=== PATIENT | female | born 1955 | race Caucasian/White ===

== ENCOUNTER 2017-11-12 23:40 | Emergency (ER) | payer MEDICARE ==
[~2017-11-12 23:40] MED LIST: ACET-2123 PO; ALPR1TAB2 PO; AUD IH; BUDE10.2 IH; CALC-866 PO; CARV3.1262 PO; LISI10TA7 PO; PANT40TA25 PO; ROSU5TAB PO; SERT100T12 PO; VITA1CAP85 PO
[2017-11-13] MEDS ORDERED: NITROGLYCERIN 1GM/1 INCH PACKET TD ONE (00:06)
[2017-11-13] MEDS ORDERED: HYDROCODONE/ACETAMINOPHEN 7.5/325 MG 15 ML UDCUP ONE (00:08)
[2017-11-13 00:10] LABS: BASOPHILS % (AUTO) 2.8 % (0.0-5.0); EOSINOPHILS % (AUTO) 1.2 % (0.0-8.0); HEMATOCRIT 31.2 % (36-48); LYMPHOCYTES % (AUTO) 22.8 % (21.0-51.0); MEAN CORPUSCULAR HEMOGLOBIN 23.5 pg (27.0-33.0); MEAN CORPUSCULAR HGB CONC 31.5 g/dL (32.0-36.0); MEAN CORPUSCULAR VOLUME 74.6 fL (79-99); MONOCYTES % (AUTO) 5.7 % (3.0-13.0); NEUTROPHILS % (AUTO) 67.5 % (40.0-77.0); PLATELET COUNT (AUTO) 372 K/uL (130-400); RED BLOOD CELL COUNT(AUTO) 4.19 MIL/uL (4.00-5.50); RED CELL DISTRIBUTION WIDTH 18.3 % (11.0-15.5); WHITE BLOOD COUNT (AUTO) 7.8 K/uL (4.8-10.8)
[2017-11-13 00:21] LABS: CREATININE 0.7 mg/dL (0.5-1.5); POTASSIUM 3.7 mmol/L (3.5-5.1)
[2017-11-13 00:34] LABS: ALBUMIN 3.4 g/dL (3.5-5.0); BILIRUBIN,TOTAL 0.3 mg/dL (0.2-1.0); TOTAL PROTEIN, SERUM 6.9 g/dL (6.0-8.3)
[2017-11-13] MEDS ORDERED: ISOVUE-370 50ML VIAL IV ONE (02:06)
[2017-11-13] MEDS ORDERED: IOPAMIDOL-370 100 ML VIAL IV ONE (02:06)
[2017-11-13] MEDS ORDERED: MORPHINE SULFATE 4 MG/1ML SYG ONE (02:10)
[2017-11-13 02:21] LABS: APPEARANCE,URINE SLIGHTLY CLOUDY (CLEAR); BILIRUBIN,URINE Negative (NEGATIVE); COLOR,URINE Yellow (YELLOW); GLUCOSE, URINE (UA) Negative (NEGATIVE); KETONES,URINE Negative (NEGATIVE); LEUKOCYTE ESTERASE ,URINE Moderate (NEGATIVE); NITRATE,URINE Negative (NEGATIVE); OCCULT BLOOD,URINE Negative (NEGATIVE); PROTEIN,URINE Negative (NEGATIVE)
[2017-11-13 02:29] LABS: AMPHET/METH SCREEN,URINE NEGATIVE (NEGATIVE); BACTERIA,URINE Rare /HPF (None Seen); BARBITURATE SCREEN, URINE NEGATIVE (NEGATIVE); BENZODIAZEPINES SCREEN,URINE POSITIVE (NEGATIVE); CANNABINOID SCREEN,URINE NEGATIVE (NEGATIVE); COCAINE SCREEN,URINE NEGATIVE (NEGATIVE); MUCUS,URINE Rare LPF (None Seen); OPIATE SCREEN,URINE POSITIVE (NEGATIVE); PHENCYCLIDINE SCREEN,URINE NEGATIVE (NEGATIVE); RBC,URINE 0-1 /HPF (0-1); SQUAMOUS EPITHELIAL CELL,UR Many /HPF (0-2)
== END 2017-11-13 06:08 | disposition home or self-care (01) ==
LOC: EDH 23:40
DX: R07.89 Other chest pain (principal); I10 Essential (primary) hypertension; I25.2 Old myocardial infarction; J44.9 Chronic obstructive pulmonary disease, unspecified; Z88.8 Allergy status to other drugs, medicaments and biological substances
CPT/HCPCS: 36415; 71045; 71275; 74177; 80053; 80305; 81001; 82550; 82553; 84484; 85025; 93005; 96374; 99285; J2270; Q9967 ×2

== ENCOUNTER 2017-12-02 12:40 | Observation (INO) | payer MEDICARE ==
[~2017-12-02] VITALS: Ht 160 cm; Wt 52.7 kg
[2017-12-02 13:51] LABS: BASOPHILS % (AUTO) 0.5 % (0.0-5.0); EOSINOPHILS % (AUTO) 0.1 % (0.0-8.0); LYMPHOCYTES % (AUTO) 11.6 % (21.0-51.0); MEAN CORPUSCULAR HEMOGLOBIN 21.9 pg (27.0-33.0); MEAN CORPUSCULAR HGB CONC 31.2 g/dL (32.0-36.0); MEAN CORPUSCULAR VOLUME 70.3 fL (79-99); MONOCYTES % (AUTO) 8.6 % (3.0-13.0); NEUTROPHILS % (AUTO) 79.2 % (40.0-77.0); NUCLEATED RED BLOOD CELLS 0.2 % (0.0-0.19); PLATELET COUNT (AUTO) 271 K/uL (130-400); RED BLOOD CELL COUNT(AUTO) 4.83 MIL/uL (4.00-5.50); RED CELL DISTRIBUTION WIDTH 20.3 % (11.0-15.5)
[2017-12-02 14:05] LABS: CREATININE 0.7 mg/dL (0.5-1.5); POTASSIUM 3.4 mmol/L (3.5-5.1)
[2017-12-02 14:07] LABS: INR 0.93 (0.85-1.15); PARTIAL THROMBOPLASTIN TIME 24.2 SEC (26.3-35.5); PROTHROMBIN TIME 9.8 SEC (9.6-11.6)
[2017-12-02] MEDS ORDERED: IPRATROPIUM/ALBUTEROL SULFATE 3 ML SOLUTION IH ONE ×2 (14:15→19:22)
[2017-12-02 14:18] LABS: ALBUMIN 3.4 g/dL (3.5-5.0); BILIRUBIN,TOTAL 0.4 mg/dL (0.2-1.0); CREATINE KINASE MB 1.2 ng/mL (0.5-3.6); TOTAL PROTEIN, SERUM 7.3 g/dL (6.0-8.3)
[2017-12-02] MEDS ORDERED: IOPAMIDOL-370 75 ML VIAL IV ONE (15:38)
[2017-12-02] MEDS ORDERED: METHYLPREDNISOLONE SOD SUCC 125MG/2ML VIAL ONE (16:44)
[2017-12-02] MEDS ORDERED: ASPIRIN 325 MG TABLET ONE (17:44)
[2017-12-02] MEDS ORDERED: AZITHROMYCIN 500MG+NS 250ML 250 ML IV ONE (18:49)
[2017-12-02 21:47] LABS: BILIRUBIN,URINE Negative (NEGATIVE); COLOR,URINE Yellow (YELLOW); GLUCOSE, URINE (UA) Negative (NEGATIVE); KETONES,URINE Trace mg/dL (NEGATIVE); LEUKOCYTE ESTERASE ,URINE Small (NEGATIVE); NITRATE,URINE Negative (NEGATIVE); OCCULT BLOOD,URINE Negative (NEGATIVE); PH,URINE 6.5 (5.0-8.0); PROTEIN,URINE Trace (NEGATIVE)
[2017-12-02 21:48] LABS: APPEARANCE,URINE SLIGHTLY CLOUDY (CLEAR)
[2017-12-02 21:54] LABS: AMPHET/METH SCREEN,URINE NEGATIVE (NEGATIVE); BARBITURATE SCREEN, URINE NEGATIVE (NEGATIVE); BENZODIAZEPINES SCREEN,URINE POSITIVE (NEGATIVE); CANNABINOID SCREEN,URINE NEGATIVE (NEGATIVE); COCAINE SCREEN,URINE NEGATIVE (NEGATIVE); OPIATE SCREEN,URINE POSITIVE (NEGATIVE); PHENCYCLIDINE SCREEN,URINE NEGATIVE (NEGATIVE); RBC,URINE 0-1 /HPF (0-1)
[2017-12-02 21:55] LABS: BACTERIA,URINE Rare /HPF (None Seen); SQUAMOUS EPITHELIAL CELL,UR Few /HPF (0-2)
[2017-12-02 22:09] LABS: CREATINE KINASE MB 0.8 ng/mL (0.5-3.6); TROPONIN I 0.35 ng/mL (0.00-0.06)
[2017-12-02] MEDS ORDERED: POTASSIUM CHLORIDE 20MEQ/100ML 100 ML IV PRN (23:45)
[2017-12-02] MEDS ORDERED: POTASSIUM CHLORIDE 20 MEQ ERTAB PO PRN (23:45)
[2017-12-02] MEDS ORDERED: POTASSIUM CHLORIDE 10% ELIXIR 20 MEQ/15 ML UDCUP PO PRN (23:45)
[2017-12-02] MEDS ORDERED: SODIUM CHLORIDE 0.9% 1000ML 1,000 ML IV SCH (23:45)
[2017-12-02] MEDS ORDERED: LIDOCAINE HCL-MPF 1% 2ML VIAL IVP PRN (23:45)
[2017-12-03 06:06] LABS: CREATINE KINASE MB 0.8 ng/mL (0.5-3.6); TROPONIN I 0.24 ng/mL (0.00-0.06)
[2017-12-03] MEDS: FAMOTIDINE 20MG TAB 20 MG TAB PO SCH ×2 (09:00→21:15)
[2017-12-03] MEDS ORDERED: ONDANSETRON HCL MDV 20ML 2 MG/ML VIAL ONE (09:39)
[2017-12-03] MEDS ORDERED: AZITHROMYCIN 500MG+NS 250ML 250 ML IV ONE (09:39)
[2017-12-03] MEDS ORDERED: METHYLPREDNISOLONE SOD SUCC 40MG/ML 1ML ONE (09:39)
[2017-12-03] MEDS ORDERED: MORPHINE SULFATE 4 MG/1ML SYG ONE ×2 (09:40→23:11)
[2017-12-03] MEDS ORDERED: POTASSIUM CHLORIDE 20MEQ/100ML 100 ML IV PRN (11:00)
[2017-12-03] MEDS ORDERED: MORPHINE SULFATE 2 MG/ML 1ML SYG IVP PRN (11:00)
[2017-12-03] MEDS ORDERED: ACETAMINOPHEN 325 MG TAB PO PRN ×2 (11:00)
[2017-12-03] MEDS ORDERED: ACETAMINOPHEN-CODEINE 300/30MG TAB PO PRN (11:00)
[2017-12-03] MEDS ORDERED: POTASSIUM CHLORIDE 20 MEQ ERTAB PO PRN (11:00)
[2017-12-03] MEDS ORDERED: POTASSIUM CHLORIDE 10% ELIXIR 20 MEQ/15 ML UDCUP PO PRN (11:00)
[2017-12-03] MEDS: METHYLPREDNISOLONE SOD SUCC 40MG/ML 1ML IVP SCH (11:00)
[2017-12-03] MEDS ORDERED: LIDOCAINE HCL-MPF 1% 2ML VIAL IVP PRN (11:00)
[2017-12-03] MEDS: AZITHROMYCIN 500MG+NS 250ML 250 ML IV SCH (11:00)
[2017-12-03] MEDS ORDERED: ALBUTEROL SULFATE 0.083% 2.5 MG/3 ML INH IH ONE (11:37)
[2017-12-03] MEDS: ALBUTEROL SULFATE 0.083% 2.5 MG/3 ML INH IH SCH ×3 (12:18→23:44)
[2017-12-03 12:50] VITALS: BP 148/66
[2017-12-03 16:46] VITALS: BP 144/71
[2017-12-03] MEDS: BUDESONIDE 0.5 MG/2 ML INH IH SCH (19:07)
[2017-12-03 20:26] VITALS: BP 146/64
[2017-12-03] MEDS ORDERED: ATORVASTATIN CALCIUM 10 MG TABLET PO SCH (21:00)
[2017-12-03] MEDS: CARVEDILOL 3.125 MG TABLET PO SCH (21:16)
[2017-12-03 23:58] VITALS: BP 174/80
[2017-12-04 03:38] VITALS: BP 129/49
[2017-12-04] MEDS: METHYLPREDNISOLONE SOD SUCC 40MG/ML 1ML IVP SCH ×2 (04:35→13:00)
[2017-12-04 04:49] LABS: HEMATOCRIT 29.1 % (36-48); MEAN CORPUSCULAR HEMOGLOBIN 21.6 pg (27.0-33.0); MEAN CORPUSCULAR HGB CONC 30.3 g/dL (32.0-36.0); MEAN CORPUSCULAR VOLUME 71.1 fL (79-99); NUCLEATED RED BLOOD CELLS 0.7 % (0.0-0.19); PLATELET COUNT (AUTO) 232 K/uL (130-400); RED BLOOD CELL COUNT(AUTO) 4.09 MIL/uL (4.00-5.50); RED CELL DISTRIBUTION WIDTH 19.9 % (11.0-15.5); WHITE BLOOD COUNT (AUTO) 4.4 K/uL (4.8-10.8)
[2017-12-04 05:31] LABS: CREATINE KINASE MB 0.6 ng/mL (0.5-3.6); CREATININE 0.5 mg/dL (0.5-1.5); POTASSIUM 4.5 mmol/L (3.5-5.1); TROPONIN I 0.19 ng/mL (0.00-0.06)
[2017-12-04] MEDS: ALBUTEROL SULFATE 0.083% 2.5 MG/3 ML INH IH SCH ×2 (07:00→11:59)
[2017-12-04] MEDS: BUDESONIDE 0.5 MG/2 ML INH IH SCH (07:07)
[2017-12-04] MEDS ORDERED: ENOXAPARIN SODIUM 40 MG/0.4 ML SYRINGE SQ SCH (09:00)
[2017-12-04 09:17] VITALS: BP 157/75
[2017-12-04] MEDS: FAMOTIDINE 20MG TAB 20 MG TAB PO SCH (09:29)
[2017-12-04] MEDS: CARVEDILOL 3.125 MG TABLET PO SCH (09:30)
[2017-12-04] MEDS ORDERED: PRED20TA3 PO (10:50)
[2017-12-04] MEDS ORDERED: AZIT500T4 PO (10:50)
[2017-12-04 12:23] VITALS: BP 184/81
[2017-12-04] MEDS: AZITHROMYCIN 500MG+NS 250ML 250 ML IV SCH (12:59)
[2017-12-04 17:34] VITALS: BP 125/65
== END 2017-12-04 17:45 | disposition home or self-care (01) ==
LOC: EDH 12:40 → EDHIP 17:16 → 3DH 12-03 12:47
PROVIDERS: ADMIT Family Medicine; ATTEND Family Medicine
DX: J44.1 Chronic obstructive pulmonary disease with (acute) exacerbation (principal); I10 Essential (primary) hypertension; I25.10 Atherosclerotic heart disease of native coronary artery without angina pectoris; E78.5 Hyperlipidemia, unspecified; I25.2 Old myocardial infarction; F17.210 Nicotine dependence, cigarettes, uncomplicated; W19.XXXA Unspecified fall, initial encounter; Y93.89 Activity, other specified; Y92.89 Other specified places as the place of occurrence of the external cause; Y99.8 Other external cause status; Z95.5 Presence of coronary angioplasty implant and graft; Z99.81 Dependence on supplemental oxygen; Z82.49 Family history of ischemic heart disease and other diseases of the circulatory system
CPT/HCPCS: 36415 ×3; 71046; 71275; 72100; 80048; 80053; 80305; 81001; 82550 ×4; 82553 ×4; 83605; 83874 ×3; 84484 ×4; 85025; 85027; 85378; 85610; 85730; 87040; 93005 ×4; 93306; 94640 ×9; 94664; 96365; 96372; 96375; 96376; 99291; G0378 ×48; J0456 ×3; J1650; J2270 ×2; J2920 ×3; J2930; Q9967

== ENCOUNTER 2017-12-15 07:08 | Day surgery (SDC) | payer MEDICARE ==
[~2017-12-15] VITALS: Ht 162.6 cm; Wt 50.3 kg
[~2017-12-15 07:08] MED LIST changes: +AZIT500T4 PO; +PRED20TA3 PO; +SODIUM CHLORIDE 0.9% 1000ML 1,000 ML IV ONE
[2017-12-15 07:41] VITALS: BP 185/87
[2017-12-15] MEDS ORDERED: PROPOFOL 10 MG/ML 20ML VIAL IV ONE (08:44)
[2017-12-15 09:03] VITALS: BP 111/52
== END 2017-12-15 09:35 | disposition home or self-care (01) ==
LOC: ENDO 07:08 → DAH 07:08 → ENDO 09:05
PROVIDERS: ATTEND Internal Medicine Gastroenterology
DX: Z12.11 Encounter for screening for malignant neoplasm of colon (principal); D12.3 Benign neoplasm of transverse colon; Z88.8 Allergy status to other drugs, medicaments and biological substances; Z87.891 Personal history of nicotine dependence; Z79.899 Other long term (current) drug therapy; K27.9 Peptic ulcer, site unspecified, unspecified as acute or chronic, without hemorrhage or perforation; I10 Essential (primary) hypertension; E78.00 Pure hypercholesterolemia, unspecified; I25.10 Atherosclerotic heart disease of native coronary artery without angina pectoris; Z95.5 Presence of coronary angioplasty implant and graft; J44.9 Chronic obstructive pulmonary disease, unspecified; F32.9 Major depressive disorder, single episode, unspecified; D50.9 Iron deficiency anemia, unspecified
CPT/HCPCS: 45380; 88305; 93005; A4606; J2704; J7030

== ENCOUNTER 2018-10-13 05:57 | Inpatient (IN) | payer MEDICARE ==
[~2018-10-13] VITALS: Ht 160 cm; Wt 36.7 kg
[~2018-10-13 05:57] MED LIST changes: -ACET-2123 PO; -AZIT500T4 PO; -PRED20TA3 PO; -ROSU5TAB PO; -SODIUM CHLORIDE 0.9% 1000ML 1,000 ML IV ONE
[2018-10-13] MEDS ORDERED: MORPHINE SULFATE 2 MG/ML 1ML SYG ONE ×5 (06:14→14:05)
[2018-10-13 07:18] LABS: CREATININE 0.5 mg/dL (0.5-1.5); POTASSIUM 3.9 mmol/L (3.5-5.1)
[2018-10-13 07:24] LABS: ALBUMIN 3.3 g/dL (3.5-5.0); BILIRUBIN,TOTAL 0.3 mg/dL (0.2-1.0); TOTAL PROTEIN, SERUM 6.4 g/dL (6.0-8.3)
[2018-10-13 07:25] LABS: BILIRUBIN,URINE Negative (NEGATIVE); COLOR,URINE Yellow (YELLOW); GLUCOSE, URINE (UA) Negative (NEGATIVE); KETONES,URINE Negative (NEGATIVE); LEUKOCYTE ESTERASE ,URINE Negative (NEGATIVE); NITRATE,URINE Negative (NEGATIVE); OCCULT BLOOD,URINE Negative (NEGATIVE); PH,URINE 8.5 (5.0-8.0); PROTEIN,URINE Negative (NEGATIVE)
[2018-10-13 07:31] LABS: INR 0.95 (0.85-1.15); PARTIAL THROMBOPLASTIN TIME 27.1 SEC (26.3-35.5)
[2018-10-13] MEDS: SODIUM CHLORIDE 0.9% 1000ML 1,000 ML IV SCH ×2 (07:40→19:50)
[2018-10-13 07:45] LABS: APPEARANCE,URINE CLEAR (CLEAR)
[2018-10-13] MEDS ORDERED: ONDANSETRON HCL 4 MG/2 ML VIAL IV PRN (07:45)
[2018-10-13 07:48] LABS: HEMATOCRIT 30.7 % (36-48); MEAN CORPUSCULAR HEMOGLOBIN 18.3 pg (27.0-33.0); MEAN CORPUSCULAR HGB CONC 28.5 g/dL (32.0-36.0); NUCLEATED RED BLOOD CELLS 0.2 % (0.0-0.19); PLATELET COUNT (AUTO) 249 K/uL (130-400); RED BLOOD CELL COUNT(AUTO) 4.79 MIL/uL (4.00-5.50); WHITE BLOOD COUNT (AUTO) 6.1 K/uL (4.8-10.8)
[2018-10-13 08:33] LABS: EOSINOPHILS % (MANUAL) 1 % (1-6); LYMPHOCYTES % (MANUAL) 22 % (22-44); MAN.DIFF COMMENT-IMPRESSION MANUAL DIFFERENTIAL; MONOCYTES % (MANUAL) 6 % (2-9); PLATELET MORPHOLOGY COMMENT ADEQUATE; SEGMENTED NEUTROPHILS % 71 % (40-70)
[2018-10-13] MEDS ORDERED: SODIUM CHLORIDE 0.9% 1000ML 1,000 ML IV ONE (08:48)
[2018-10-13] MEDS ORDERED: FAMOTIDINE/PF 20 MG/2 ML VIAL IV ONE (08:48)
[2018-10-13] MEDS ORDERED: ENOXAPARIN SODIUM 30 MG/0.3 ML SQ ONE (08:48)
[2018-10-13] MEDS: ENOXAPARIN SODIUM 30 MG/0.3 ML SQ SCH (09:00)
[2018-10-13] MEDS: FAMOTIDINE/PF 20 MG/2 ML VIAL IV SCH ×2 (09:00→19:45)
[2018-10-13 14:51] VITALS: BP 187/70
--- NOTE | 2018-10-13 16:30 | NUR ---
MD ROUNDS PATIENT AWAKE AND ALERT. VOICES ALL NEEDS. MEDICATED PER MARS FOR COMPLAINTS OF PAIN. VISITED WITH PATIENT. POC DISCUSSED. ALL QUESTIONS ANSWERED BY MD. CALLED SON AND DISCUSSED POC AND POSSIBLE SURGERY TOMORROW. SON KRISTI FLOWER, AGREED WITH SURGERY TELEPHONE CONSENT OBTAINED. RICH ACEVEDO RN WITNESSED. NO QUESTIONS OR CONCERNS VOICED AT THIS TIME. CALL LIGHT WITHIN REACH WILL CONTINUE TO BE OBSERVED. Addendum: 10/13/18 at 1924 by VIVIANA SUAREZ RN RN Amended: Links added.
[2018-10-13] MEDS ORDERED: MEGE400O4 PO (18:18)
[2018-10-13] MEDS ORDERED: ASPI-1197 PO (18:18)
[2018-10-13] MEDS ORDERED: MAGN400O17 PO (18:18)
[2018-10-13] MEDS ORDERED: DOCU-116 PO (18:18)
[2018-10-13] MEDS ORDERED: ONDA4TAB4 PO (18:21)
[2018-10-13] MEDS ORDERED: ONDANSETRON 4 MG TABLET PO PRN (18:30)
[2018-10-13] MEDS ORDERED: MAGNESIUM HYDROXIDE 30 ML/UDCUP PO PRN (18:30)
[2018-10-13] MEDS ORDERED: ALPRAZOLAM 1 MG TAB ONE (18:41)
[2018-10-13] MEDS: MORPHINE SULFATE 2 MG/ML 1ML SYG IV PRN (18:51)
[2018-10-13 19:30] VITALS: BP 166/72
[2018-10-13] MEDS: DOCUSATE SODIUM 100 MG CAP PO SCH (19:45)
[2018-10-13] MEDS: CARVEDILOL 3.125 MG TABLET PO SCH (19:45)
[2018-10-13] MEDS: ALPRAZOLAM 1 MG TAB PO SCH (21:00)
[2018-10-13 23:12] VITALS: BP 149/79
[2018-10-14] VITALS (8 sets, daily range): BP systolic 136–159; BP diastolic 60–75
[2018-10-14 04:18] LABS: BASOPHILS % (AUTO) 0.4 % (0.0-5.0); EOSINOPHILS % (AUTO) 0.1 % (0.0-8.0); LYMPHOCYTES % (AUTO) 29.8 % (21.0-51.0); MEAN CORPUSCULAR HEMOGLOBIN 18.6 pg (27.0-33.0); MEAN CORPUSCULAR HGB CONC 27.8 g/dL (32.0-36.0); MEAN CORPUSCULAR VOLUME 66.7 fL (79-99); MONOCYTES % (AUTO) 4.9 % (3.0-13.0); NEUTROPHILS % (AUTO) 64.8 % (40.0-77.0); PLATELET COUNT (AUTO) 235 K/uL (130-400); RED BLOOD CELL COUNT(AUTO) 4.79 MIL/uL (4.00-5.50); WHITE BLOOD COUNT (AUTO) 8.8 K/uL (4.8-10.8)
[2018-10-14 04:33] LABS: CREATININE 0.6 mg/dL (0.5-1.5)
[2018-10-14] MEDS ORDERED: CLINDAMYCIN 600 MG/D5% WATER 50 ML IV PRN (06:00)
[2018-10-14] MEDS: MORPHINE SULFATE 2 MG/ML 1ML SYG IV PRN (08:57)
[2018-10-14] MEDS: CARVEDILOL 3.125 MG TABLET PO SCH ×2 (08:58→21:19)
[2018-10-14] MEDS: ALPRAZOLAM 1 MG TAB PO SCH ×3 (08:58→21:19)
[2018-10-14] MEDS: VITAMIN B COMPLEX 1 CAPSULE PO SCH (09:00)
[2018-10-14] MEDS: SERTRALINE HCL 50 MG TABLET PO SCH (09:00)
[2018-10-14] MEDS: MEGESTROL 400 MG/10 ML UDCUP PO SCH (09:00)
[2018-10-14] MEDS: LISINOPRIL 10 MG TABLET PO SCH (09:00)
[2018-10-14] MEDS: DOCUSATE SODIUM 100 MG CAP PO SCH ×2 (09:00→21:19)
[2018-10-14] MEDS: PANTOPRAZOLE SODIUM 40 MG TABLET.DR PO SCH (09:00)
[2018-10-14] MEDS: ENOXAPARIN SODIUM 30 MG/0.3 ML SQ SCH (09:00)
[2018-10-14] MEDS: SYMBICORT 160-4.5 MCG INHALER IH SCH (09:00)
--- NOTE | 2018-10-14 09:30 | NUR ---
ROUNDS-CARDIOLOGY VISITED WITH PATIENT. POC DISCUSSED. CLEARANCE GIVEN TO PROCEED WITH ORIF. AWARE. WILL CONTINUE TO BE OBSERVED. CALL LIGHT WITHIN REACH. SIDE RAILS UP X3. BED AT THE LOWEST POSITION. Addendum: 10/14/18 at 1242 by VIVIANA SUAREZ RN RN Amended: Links added.
--- NOTE | 2018-10-14 12:12 | NUR ---
[facility] CM met with pt currently on and off confusion, unable to answer questions appropriately. Called son on facesheet, spoke Mason Linares discussed dc plans. Prior to admission pt was recently discharged to [facility] for rehab readmitted s/p fall w/ left hip fx. Prior to [facility] pt lives at home with son and son-in-law. Has a shower chair, rollator walker, and nebulizer machine. Son agreeable for short term placement rehab, as per son most likely to [facility], would like to decide once pt more stable and after surgery. DC plan to SNF. CM to cont to follow up. Addendum: 10/14/18 at 1215 by CATHY LOVE LVN Amended: Links added.
--- NOTE | 2018-10-14 14:00 | NUR ---
CALLED TO INFORM DIANETICIST THAT SURGERY WILL NOT BE DONE TODAY. PATIENT AND SON KRISTI, AT BEDSIDE AWARE. PATIENT PLEASANTLY CONFUSED PULLED OUT HARDEN CATHETER. AWARE. NEW ORDERS RECEIVED AND CARRIED OUT. PATIENT PLACED ON A 1:1 SITTER AND ATIVAN 1MG GIVEN IVP SLOWLY. NO SIGNS OF DISTRESS NOTED AT THIS TIME. VITALS STABLE. AFEBRILE. TOLERATING IVF WELL. DIET ORDERED. CALL LIGHT WITHIN REACH. WILL CONTINUE TO BE OBSERVED. Addendum: 10/14/18 at 1455 by VIVIANA SUAREZ RN RN Amended: Links added.
[2018-10-14] MEDS ORDERED: LORAZEPAM 2 MG/ML 1 ML VIAL ONE (14:38)
[2018-10-14] MEDS: FAMOTIDINE/PF 20 MG/2 ML VIAL IV SCH ×2 (14:52→21:18)
[2018-10-14] MEDS ORDERED: LORAZEPAM 2 MG/ML 1 ML VIAL IVP ONE (15:40)
--- NOTE | 2018-10-14 15:47 | NUR ---
[facility] consult Patient assessed as ordered. [facility] recommendations submitted. Addendum: 10/14/18 at 1550 by BOUBACAR GODOY RN/ Amended: Links added.
--- NOTE | 2018-10-14 17:00 | NUR ---
PATIENT TRANSFERRED TO ROOM 306. ENDORSED PATIENT AND REPORT GIVEN TO MAGO YOUNG. Addendum: 10/14/18 at 1732 by VIVIANA SUAREZ RN RN Amended: Links added.
[2018-10-14] MEDS: SODIUM CHLORIDE 0.9% 1000ML 1,000 ML IV SCH (21:26)
[2018-10-15] MEDS: MORPHINE SULFATE 2 MG/ML 1ML SYG IV PRN ×4 (02:48→20:50)
[2018-10-15 05:40] LABS: BASOPHILS % (AUTO) 0.3 % (0.0-5.0); EOSINOPHILS % (AUTO) 0.4 % (0.0-8.0); HEMATOCRIT 29.9 % (36-48); MEAN CORPUSCULAR HEMOGLOBIN 19.5 pg (27.0-33.0); MEAN CORPUSCULAR HGB CONC 29.2 g/dL (32.0-36.0); MEAN CORPUSCULAR VOLUME 66.8 fL (79-99); MONOCYTES % (AUTO) 6.4 % (3.0-13.0); NEUTROPHILS % (AUTO) 47.9 % (40.0-77.0); PLATELET COUNT (AUTO) 256 K/uL (130-400); RED BLOOD CELL COUNT(AUTO) 4.47 MIL/uL (4.00-5.50); RED CELL DISTRIBUTION WIDTH 33.1 % (11.0-15.5); WHITE BLOOD COUNT (AUTO) 7.2 K/uL (4.8-10.8)
[2018-10-15 05:57] LABS: ALBUMIN 2.6 g/dL (3.5-5.0); BILIRUBIN,TOTAL 0.6 mg/dL (0.2-1.0); CREATININE 0.4 mg/dL (0.5-1.5); POTASSIUM 3.8 mmol/L (3.5-5.1); TOTAL PROTEIN, SERUM 5.9 g/dL (6.0-8.3)
[2018-10-15 06:09] VITALS: BP 155/70
--- NOTE | 2018-10-15 06:57 | NUR ---
PATIENT UPDATE PT KEEPING NPO POST MN, GOING FOR LEFT HIP SURGERY TODAY BY DR. HUNT. MEDICATED ONCE FOR PAIN WITH MORPHINE SULFATE 2 MG SLOW IV PUSH WHICH AFFORDED RELIEF. CONTINUES WITH THE HYDRATION WITH NS AT 75 CC/HR. REPOSITIONED IN THE BED, FULL BEDBATH GIVEN, WAFFLE MATTRESS APPLIED. COMFORTABLE WITH THE O2 ON AT 2L PER NASAL CANNULA. VITAL SIGNS STABLE.
[2018-10-15 07:43] VITALS: BP 157/63
--- NOTE | 2018-10-15 08:00 | NUR ---
AM SHIFT ASSESSMENT: NPO , SURGERY FOR LT. HIP FX PENDING THIS AFTERNOON.
[2018-10-15] MEDS: VITAMIN B COMPLEX 1 CAPSULE PO SCH (09:00)
[2018-10-15] MEDS: CARVEDILOL 3.125 MG TABLET PO SCH ×2 (09:00→20:49)
[2018-10-15] MEDS: ENOXAPARIN SODIUM 30 MG/0.3 ML SQ SCH (09:00)
[2018-10-15] MEDS: ALPRAZOLAM 1 MG TAB PO SCH ×3 (09:00→21:00)
[2018-10-15] MEDS: PANTOPRAZOLE SODIUM 40 MG TABLET.DR PO SCH (09:00)
[2018-10-15] MEDS: DOCUSATE SODIUM 100 MG CAP PO SCH ×2 (09:00→20:49)
[2018-10-15] MEDS: SYMBICORT 160-4.5 MCG INHALER IH SCH (09:00)
[2018-10-15] MEDS: MEGESTROL 400 MG/10 ML UDCUP PO SCH (09:00)
[2018-10-15] MEDS: SERTRALINE HCL 50 MG TABLET PO SCH (09:00)
--- NOTE | 2018-10-15 09:01 | NUR ---
C/O PAIN TO LT. HIP, 7 TO 8 ON PS OF 1-10. MEDICATED WITH MORPHINE 2 MG IV
[2018-10-15 11:39] VITALS: BP 161/68
--- NOTE | 2018-10-15 11:58 | NUR ---
RDSCREEN - LOW BMI Patient NPO for surgery at time of visit. Patient with low BMI (14.3). When medically feasible, Rec to resume diet of Heart Healthy Diet, Ensure supplement BID, and to add 30mL ProMod TID secondary to malnutrition and wound. Rec to add Vitamin C and Zinc for wound healing support. Patient LBM 10/11/18. Patient monitored labs: Cr 0.4, Alb 2.6, H/H 8.7/29.9. RD to continue to monitor. Please notify RD as nutritional concerns arise. Thank you. Addendum: 10/15/18 at [address] RD Amended: Links added.
[2018-10-15] MEDS: SODIUM CHLORIDE 0.9% 1000ML 1,000 ML IV SCH (13:00)
--- NOTE | 2018-10-15 15:00 | NUR ---
SURGERY NOW HAS BEEN BUMPED UP AGAIN, DR. GONZALEZ WILL BE HERE ABOUT 1630 AND FAMILY HAS BEEN INFORMED, NOT HAPPY, HAD TO LEAVE.
[2018-10-15 16:09] VITALS: BP 112/63
--- NOTE | 2018-10-15 17:45 | NUR ---
DR. GONZALEZ HERE NOW. TALKED TO SON ( WHITLEY). PLAN TO TAKE HER TO OR THIS EVENING.
[2018-10-15 19:21] VITALS: BP 177/78
--- NOTE | 2018-10-15 19:25 | NUR ---
DR. HUNT CALLED AND RESCHEDULED SURG. FOR 0730 AM. ASKED THAT I CALL SON AND INFORM HIM.
--- NOTE | 2018-10-15 19:57 | NUR ---
INFORMED SON THAT SURG HAS BEEN RESCHEDULED FOR TOMORROW MORNING. WILL GIVE PT. CLEAR LIQUIDS TONIGHT AND PLACE ON NPO STATUS AT [facility] AGAIN.
[2018-10-15] MEDS: LISINOPRIL 10 MG TABLET PO SCH (20:48)
[2018-10-15] MEDS: FAMOTIDINE/PF 20 MG/2 ML VIAL IV SCH ×2 (20:48→21:00)
[2018-10-15 23:07] VITALS: BP 144/73
[2018-10-16] VITALS (21 sets, daily range): BP systolic 123–187; BP diastolic 48–85
[2018-10-16] MEDS: SODIUM CHLORIDE 0.9% 1000ML 1,000 ML IV SCH ×4 (02:20→16:12)
[2018-10-16 04:49] LABS: BASOPHILS % (AUTO) 0.8 % (0.0-5.0); EOSINOPHILS % (AUTO) 1.2 % (0.0-8.0); HEMATOCRIT 30.6 % (36-48); LYMPHOCYTES % (AUTO) 53.9 % (21.0-51.0); MEAN CORPUSCULAR HEMOGLOBIN 19.7 pg (27.0-33.0); MEAN CORPUSCULAR VOLUME 67.8 fL (79-99); MONOCYTES % (AUTO) 7.5 % (3.0-13.0); NEUTROPHILS % (AUTO) 36.6 % (40.0-77.0); NUCLEATED RED BLOOD CELLS 0.1 % (0.0-0.19); PLATELET COUNT (AUTO) 270 K/uL (130-400); RED BLOOD CELL COUNT(AUTO) 4.51 MIL/uL (4.00-5.50); RED CELL DISTRIBUTION WIDTH 34.5 % (11.0-15.5); WHITE BLOOD COUNT (AUTO) 5.1 K/uL (4.8-10.8)
[2018-10-16] MEDS: MORPHINE SULFATE 2 MG/ML 1ML SYG IV PRN ×4 (04:58→20:44)
[2018-10-16 05:02] LABS: CREATININE 0.4 mg/dL (0.5-1.5); POTASSIUM 3.3 mmol/L (3.5-5.1)
--- NOTE | 2018-10-16 07:00 | NUR ---
TO OR NOW, SON (KRISTI) NOTIFIED VIA PHONE BY ME (BE). WILL GIVE HIM A CALL BACK WHEN PT. RETURNS TO ROOM.
[2018-10-16] MEDS ORDERED: PROPOFOL 10 MG/ML 20ML VIAL IV ONE (07:05)
[2018-10-16] MEDS ORDERED: FENTANYL CITRATE PF 50 MCG/1 ML 2ML VIAL ONE (07:05)
[2018-10-16] MEDS ORDERED: LIDOCAINE PF 2% 5ML ABBOJECT ONE (07:05)
[2018-10-16] MEDS ORDERED: ROCURONIUM 10MG/1ML SYR 10 MG/ML ML ONE (07:05)
[2018-10-16] MEDS ORDERED: SUCCINYLCHOLINE 200MG/10ML SYR ONE (07:05)
[2018-10-16] MEDS ORDERED: ROPIVACAINE 0.5% 5MG/ML 30ML IJ ONE (07:12)
[2018-10-16] MEDS: MEGESTROL 400 MG/10 ML UDCUP PO SCH (09:00)
[2018-10-16] MEDS: LISINOPRIL 10 MG TABLET PO SCH (09:00)
[2018-10-16] MEDS: SYMBICORT 160-4.5 MCG INHALER IH SCH (09:00)
[2018-10-16] MEDS: ALPRAZOLAM 1 MG TAB PO SCH ×3 (09:00→20:37)
[2018-10-16] MEDS: DOCUSATE SODIUM 100 MG CAP PO SCH ×2 (09:00→20:37)
[2018-10-16] MEDS: FAMOTIDINE/PF 20 MG/2 ML VIAL IV SCH ×2 (09:00→20:37)
[2018-10-16] MEDS: CARVEDILOL 3.125 MG TABLET PO SCH ×2 (09:00→20:38)
[2018-10-16] MEDS: SERTRALINE HCL 50 MG TABLET PO SCH (09:00)
[2018-10-16] MEDS: PANTOPRAZOLE SODIUM 40 MG TABLET.DR PO SCH (09:00)
[2018-10-16] MEDS: VITAMIN B COMPLEX 1 CAPSULE PO SCH (09:00)
[2018-10-16] MEDS: ENOXAPARIN SODIUM 30 MG/0.3 ML SQ SCH (09:00)
[2018-10-16] MEDS ORDERED: SUB TO ALBUTEROL 2.5MG/3ML NEBULES PER P&T IH ONE (09:07)
[2018-10-16] MEDS: ALBUTEROL SULFATE 0.083% 2.5 MG/3 ML INH IH PRN (09:35)
[2018-10-16] MEDS ORDERED: MEPERIDINE-PF 25 MG/ML SYG ONE (09:49)
[2018-10-16] MEDS ORDERED: HYDRALAZINE HCL 20 MG/ML VIAL ONE ×2 (09:49→09:54)
[2018-10-16] MEDS ORDERED: KETOROLAC TROMETHAMINE 30MG/ML ONE (09:58)
[2018-10-16] MEDS ORDERED: LIDOCAINE HCL 1% 20 ML VIAL ONE (10:33)
[2018-10-16] MEDS ORDERED: BUPIVACAINE/PF 0.25% 30ML VIAL IJ ONE (10:33)
[2018-10-16] MEDS ORDERED: SODIUM CHLORIDE 0.9% 10 ML VIAL ONE (10:34)
[2018-10-16] MEDS ORDERED: LIDOCAINE HCL-MPF 0.5% 50ML VIAL IJ ONE (10:45)
[2018-10-16] MEDS ORDERED: BUPIVACAINE/PF 0.5% 10ML VIAL ONE (10:48)
--- NOTE | 2018-10-16 10:52 | NUR ---
INDIA ECKERT TO PERFORM LEFT HIP NERVE BLOCK. RT PT, RT SITE IDENTIFIED. PROCEDURE EXPLAINED TO PT. Addendum: 10/16/18 at 1053 by SANJAY WHEAT RN RN Amended: Links added.
--- NOTE | 2018-10-16 12:00 | NUR ---
ARRIVAL TO FLOOR ROOM 230. PT IS AWAKE AND ALERT, GROGGY BUT AROUSABLE TO NAME AND ANSWERS QUESTIONS APPROPRIATELY. LEFT HIP DRESSING IS CLEAN DRY AND INTACT, ICE PACK APPLIED PER DR HUNT ORDERS. BREATHING PATTERN IS EVEN AND UNLABORED. DENIES CP DENIES SOB DENIES NV. NOTED MANY MEDICATIONS IN EMAR IN RED SINCE 319 SHIFTS. ATTEMPTED TO CLEAR OUT PAST DUE AND OLD MEDS FROM EMAR. PT IS RESTING IN BED, DOOR AJAR BLINDS OPEN CALL LIGHT WITHIN REACH.
--- NOTE | 2018-10-16 13:00 | NUR ---
ATTEMPTING TO REMOVE LINES IV , O2 AND TELE PACK. REORIENTED TO PLACE AND TIME. CRESCENCIO MERCEDES AT BEDSIDE.
[2018-10-16] MEDS: CLINDAMYCIN 600 MG/D5% WATER 50 ML IV SCH ×2 (13:17→23:03)
--- NOTE | 2018-10-16 18:23 | NUR ---
STATUS RESTING IN BED, NO COMPLAINTS AT THIS TIME 1:1 SITTER AT BEDSIDE.
--- NOTE | 2018-10-16 21:00 | NUR ---
PT CONTINUES AT 1:1. NO DISTRESS NOTED. PAIN STATED TO LEFT HIP. MORPHINE PRN AVAILABLE. NO SOB NOTED. PT IS STABLE. NOT ATTEMPTING TO PULL AT IVS OR GETTING OUT OF BED. LAST BM 10/13. PT HAS BEEN BEDREST.
[2018-10-17 03:09] VITALS: BP 160/74
[2018-10-17 03:34] LABS: BASOPHILS % (AUTO) 0.1 % (0.0-5.0); EOSINOPHILS % (AUTO) 1.1 % (0.0-8.0); HEMATOCRIT 28.1 % (36-48); MEAN CORPUSCULAR HEMOGLOBIN 19.8 pg (27.0-33.0); MEAN CORPUSCULAR VOLUME 68.4 fL (79-99); MONOCYTES % (AUTO) 7.9 % (3.0-13.0); NEUTROPHILS % (AUTO) 31.9 % (40.0-77.0); PLATELET COUNT (AUTO) 291 K/uL (130-400); RED BLOOD CELL COUNT(AUTO) 4.12 MIL/uL (4.00-5.50); RED CELL DISTRIBUTION WIDTH 35.7 % (11.0-15.5); WHITE BLOOD COUNT (AUTO) 4.6 K/uL (4.8-10.8)
[2018-10-17] MEDS: MORPHINE SULFATE 2 MG/ML 1ML SYG IV PRN ×3 (03:44→23:46)
[2018-10-17 04:43] LABS: CREATININE 0.3 mg/dL (0.5-1.5)
[2018-10-17] MEDS: SODIUM CHLORIDE 0.9% 1000ML 1,000 ML IV SCH (05:00)
[2018-10-17 05:09] LABS: POTASSIUM 2.7 mmol/L (3.5-5.1)
[2018-10-17] MEDS ORDERED: LIDOCAINE HCL-MPF 1% 2ML VIAL IVP PRN (05:15)
[2018-10-17] MEDS ORDERED: POTASSIUM CHLORIDE 20 MEQ ERTAB PO PRN (05:15)
[2018-10-17] MEDS ORDERED: POTASSIUM CHLORIDE 10% ELIXIR 20 MEQ/15 ML UDCUP PO PRN (05:15)
--- NOTE | 2018-10-17 05:18 | NUR ---
POTASSIUM AT 2.7. CALLED BLANCO RODRIGUEZ. NEW ORDER FOR POTASSIUM PROTOCOL
[2018-10-17] MEDS: POTASSIUM CHLORIDE 20MEQ/100ML 100 ML IV PRN ×2 (05:37→07:21)
[2018-10-17] MEDS: SYMBICORT 160-4.5 MCG INHALER IH SCH (07:15)
[2018-10-17] MEDS: DOCUSATE SODIUM 100 MG CAP PO SCH ×2 (07:21→21:22)
[2018-10-17] MEDS: ASPIRIN 81MG TAB.CHEW PO SCH (07:21)
[2018-10-17] MEDS: MEGESTROL 400 MG/10 ML UDCUP PO SCH (07:21)
[2018-10-17] MEDS: PANTOPRAZOLE SODIUM 40 MG TABLET.DR PO SCH (07:21)
[2018-10-17] MEDS: VITAMIN B COMPLEX 1 CAPSULE PO SCH (07:21)
[2018-10-17] MEDS: ALPRAZOLAM 1 MG TAB PO SCH ×3 (07:21→21:22)
[2018-10-17] MEDS: CARVEDILOL 3.125 MG TABLET PO SCH ×2 (07:21→21:23)
[2018-10-17] MEDS: LISINOPRIL 10 MG TABLET PO SCH (07:21)
[2018-10-17] MEDS: ENOXAPARIN SODIUM 30 MG/0.3 ML SQ SCH (07:22)
[2018-10-17] MEDS: FAMOTIDINE/PF 20 MG/2 ML VIAL IV SCH ×2 (07:23→21:23)
[2018-10-17] MEDS: SERTRALINE HCL 50 MG TABLET PO SCH (07:23)
[2018-10-17 07:56] VITALS: BP 169/72
--- NOTE | 2018-10-17 08:00 | NUR ---
ASSESSMENT PT IS AAOX2, DENIES CP DENIES SOB DENIES NV NO COMPLAINTS. SITTING UPRIGHT IN BED, LEFT HIP DRESSING INTACT AND INPLACE. 1:1 SITTER LEONARDO. POTASSIUM REPLACEMENT IN PROGRESS. CALL LIGHT WITHIN REACH.
[2018-10-17] MEDS ORDERED: MAGNESIUM 4GM PREMIX 100ML 100 ML IV ONE (10:45)
[2018-10-17] MEDS ORDERED: POTASSIUM CHLORIDE 20 MEQ ERTAB PO SCH (10:45)
--- NOTE | 2018-10-17 10:45 | NUR ---
DR HUNT / DR LANDON ROUNDED SAW PATIENT ORDERS RECEIVED
[2018-10-17 12:00] VITALS: BP 134/57
--- NOTE | 2018-10-17 13:00 | NUR ---
cm note metwith patient and with son, and discussed snf for rehab, they do not wish to go to [facility]. they want to go to either [facility] or [facility]. but they will decide on which one later. after they ask mds. ok to send referrals to both as per pt and son.
--- NOTE | 2018-10-17 13:00 | NUR ---
K AND MAG REPLACEMENT GIVEN. NO COMPLAINTS.
[2018-10-17 14:51] LABS: CREATININE 0.4 mg/dL (0.5-1.5); MAGNESIUM 2.4 mg/dL (1.80-2.40); POTASSIUM 4.4 mmol/L (3.5-5.1)
[2018-10-17 16:00] VITALS: BP 140/64
--- NOTE | 2018-10-17 16:10 | NUR ---
REPORT GIVEN TO WICHO RN PATIENT TRANSFERRED VIA BED AND ALL BELONGINGS TO ROOM 403. PT IS AWAKE AND ALERT, DENIES PAIN DENIES SOB DENIES CP DENIES NV. NO COMPLAINTS.
[2018-10-17 19:26] VITALS: BP 129/63
[2018-10-17] MEDS: MAGNESIUM OXIDE 400 MG TABLET PO SCH (21:22)
[2018-10-17] MEDS: ACETAMINOPHEN 325 MG TAB PO PRN (21:24)
[2018-10-17 23:10] VITALS: BP 118/68
[2018-10-18 03:42] VITALS: BP 142/60
[2018-10-18 04:51] LABS: HEMATOCRIT 28.6 % (36-48); MEAN CORPUSCULAR HEMOGLOBIN 20.2 pg (27.0-33.0); MEAN CORPUSCULAR HGB CONC 29.3 g/dL (32.0-36.0); PLATELET COUNT (AUTO) 306 K/uL (130-400); RED BLOOD CELL COUNT(AUTO) 4.15 MIL/uL (4.00-5.50); RED CELL DISTRIBUTION WIDTH 37.1 % (11.0-15.5); WHITE BLOOD COUNT (AUTO) 4.2 K/uL (4.8-10.8)
[2018-10-18 05:02] LABS: CREATININE 0.4 mg/dL (0.5-1.5); MAGNESIUM 1.8 mg/dL (1.80-2.40); PHOSPHORUS 2.3 mg/dL (2.5-4.9); POTASSIUM 4.1 mmol/L (3.5-5.1)
[2018-10-18] MEDS: MORPHINE SULFATE 2 MG/ML 1ML SYG IV PRN (06:45)
[2018-10-18] MEDS ORDERED: MAGNESIUM 2GM PREMIX 50ML 50 ML IV ONE (08:00)
[2018-10-18 08:35] VITALS: BP 149/66
[2018-10-18] MEDS: SYMBICORT 160-4.5 MCG INHALER IH SCH (09:00)
[2018-10-18] MEDS ORDERED: LACTULOSE 20 GM/30 ML UDCUP PO PRN (09:30)
[2018-10-18] MEDS: VITAMIN B COMPLEX 1 CAPSULE PO SCH (10:12)
[2018-10-18] MEDS: ALPRAZOLAM 1 MG TAB PO SCH ×3 (10:12→20:38)
[2018-10-18] MEDS: MAGNESIUM OXIDE 400 MG TABLET PO SCH ×2 (10:12→20:38)
[2018-10-18] MEDS: FAMOTIDINE/PF 20 MG/2 ML VIAL IV SCH ×2 (10:12→20:38)
[2018-10-18] MEDS: SERTRALINE HCL 50 MG TABLET PO SCH (10:12)
[2018-10-18] MEDS: PANTOPRAZOLE SODIUM 40 MG TABLET.DR PO SCH (10:12)
[2018-10-18] MEDS: LISINOPRIL 10 MG TABLET PO SCH (10:12)
[2018-10-18] MEDS: CARVEDILOL 3.125 MG TABLET PO SCH ×2 (10:13→20:39)
[2018-10-18] MEDS: DOCUSATE SODIUM 100 MG CAP PO SCH ×2 (10:13→20:38)
[2018-10-18] MEDS: ASPIRIN 81MG TAB.CHEW PO SCH (10:13)
[2018-10-18] MEDS: MEGESTROL 400 MG/10 ML UDCUP PO SCH (10:13)
[2018-10-18] MEDS: ENOXAPARIN SODIUM 30 MG/0.3 ML SQ SCH (10:14)
[2018-10-18 12:00] VITALS: BP 127/57
--- NOTE | 2018-10-18 13:59 | NUR ---
DC PLAN TO [facility] PATIENT RE D/C PLAN- SHE DEFERRED DECISION TO HER SON; CALLED HIM, PRIVATE ROOM PREFERRED, REFERRAL TO [facility], PENDING CALL BACK FROM EDDIE
[2018-10-18 16:00] VITALS: BP 132/61
[2018-10-18 20:00] VITALS: BP 140/60
[2018-10-18] MEDS: ACETAMINOPHEN 325 MG TAB PO PRN (20:48)
[2018-10-19] VITALS (7 sets, daily range): BP systolic 121–173; BP diastolic 44–91
[2018-10-19] MEDS: MORPHINE SULFATE 2 MG/ML 1ML SYG IV PRN ×4 (01:45→17:08)
[2018-10-19 05:28] LABS: BASOPHILS % (AUTO) 0.5 % (0.0-5.0); MEAN CORPUSCULAR HEMOGLOBIN 20.4 pg (27.0-33.0); MEAN CORPUSCULAR HGB CONC 29.6 g/dL (32.0-36.0); NEUTROPHILS % (AUTO) 28.5 % (40.0-77.0); PLATELET COUNT (AUTO) 367 K/uL (130-400); RED BLOOD CELL COUNT(AUTO) 4.35 MIL/uL (4.00-5.50); RED CELL DISTRIBUTION WIDTH 37.4 % (11.0-15.5); WHITE BLOOD COUNT (AUTO) 4.6 K/uL (4.8-10.8)
[2018-10-19 05:48] LABS: CREATININE 0.4 mg/dL (0.5-1.5); POTASSIUM 3.8 mmol/L (3.5-5.1)
[2018-10-19] MEDS: SYMBICORT 160-4.5 MCG INHALER IH SCH (09:00)
[2018-10-19] MEDS: ALPRAZOLAM 1 MG TAB PO SCH ×3 (09:13→20:19)
[2018-10-19] MEDS: SERTRALINE HCL 50 MG TABLET PO SCH (09:13)
[2018-10-19] MEDS: FAMOTIDINE/PF 20 MG/2 ML VIAL IV SCH ×2 (09:13→20:19)
[2018-10-19] MEDS: MEGESTROL 400 MG/10 ML UDCUP PO SCH (09:13)
[2018-10-19] MEDS: VITAMIN B COMPLEX 1 CAPSULE PO SCH (09:14)
[2018-10-19] MEDS: MAGNESIUM OXIDE 400 MG TABLET PO SCH ×2 (09:14→20:19)
[2018-10-19] MEDS: PANTOPRAZOLE SODIUM 40 MG TABLET.DR PO SCH (09:14)
[2018-10-19] MEDS: ASPIRIN 81MG TAB.CHEW PO SCH (09:14)
[2018-10-19] MEDS: DOCUSATE SODIUM 100 MG CAP PO SCH ×2 (09:14→20:19)
[2018-10-19] MEDS: LISINOPRIL 10 MG TABLET PO SCH (09:14)
[2018-10-19] MEDS: ENOXAPARIN SODIUM 30 MG/0.3 ML SQ SCH (09:14)
[2018-10-19] MEDS: CARVEDILOL 3.125 MG TABLET PO SCH ×2 (09:15→20:19)
--- NOTE | 2018-10-19 14:00 | NUR ---
REFUSED DNR STATUS PATIENTS SON, KRISTI FLOWER, HERE TO SEE PATIENT. I UPDATED MR. FLOWER ON PATIENT STATUS AND PLAN OF CARE. I ALSO BROUGHT UP THE CONCERN OF PATIENTS CODE STATUS PATIENT IS NOT ALERT AND ORIENTED AT ALL TIMES TO SIGN DO NOT RESUSCITATE REQUEST FORM. MR. FLOWER REPLIED HE WAS NOT COMFORTABLE WITH AGREEING WITH DNR STATUS AT THIS TIME AND WOULD LIKE PATIENT TO REMAIN FULL CODE IN THE HOSPITAL FOR NOW. I INFORMED DR. MATEUS PERDUE AND ORDERED TO CHANGE PATIENT STATUS TO FULL CODE PER MR. WICK' REQUEST.
--- NOTE | 2018-10-19 15:11 | NUR ---
RD Follow-up Note Patient post-op Left Hip Intertrochanteric Fracture ORIF. Patient with Heart Healthy, Mechanical Soft diet with no GI distress and good PO with sitter. Patient eating well as per CLAIMS ASSISTANT, with 75% intake. Rec to add Ensure BID for increased nutritional support. Patient BMI 14.3. Patient LBM 10/18/18. Patient monitored labs: BUN 5, Cr 0.4, P 2.3, CO2 34. Patient with noted Left Heel ulcer. RD to continue to monitor. Please notify RD as nutritional concerns arise. Thank you. Addendum: 10/19/18 at [address] Amended: Links added.
--- NOTE | 2018-10-19 17:00 | NUR ---
JOSEFINA ON AUTH [facility] SUBMITTED TO INSURANCE Addendum: 10/20/18 at 1840 by CORNELIUS COTA RN CM Amended: Links added.
--- NOTE | 2018-10-19 18:30 | NUR ---
PATIENT COMPLAINT/SW EVAL PLACED WAS INFORMED BY 1:1 NEELA AARON CNA THAT TODAY AFTER PATIENTS' SON (KRISTI FLOWER) VISIT, PATIENT TOLD CHARI AARON THAT SHE DID NOT TRUST HER SON (MR. FLOWER) AND THAT PATIENT DOES NOT LIKE THE WAY HER SON TREATS HER. PATIENT TOLD CHARI AARON THAT SHE NEVER WANTS TO BE LEFT ALONE WITH HER SON IF HE VISITS. PATIENT IS ALERT AND ORIENTED TO PERSON AND TIME, BUT DOES OCCASIONALLY HAVE MOMENTS ON CONFUSION, FORGETFULNESS, OR ANXIETY.
[2018-10-19] MEDS: ACETAMINOPHEN 325 MG TAB PO PRN (20:19)
[2018-10-20] VITALS: BP 135/71
[2018-10-20 04:00] VITALS: BP 138/66
[2018-10-20] MEDS: MORPHINE SULFATE 2 MG/ML 1ML SYG IV PRN (04:17)
[2018-10-20 07:00] VITALS: BP 159/89
[2018-10-20] MEDS: ALBUTEROL SULFATE 0.083% 2.5 MG/3 ML INH IH PRN (07:12)
[2018-10-20] MEDS: ENOXAPARIN SODIUM 30 MG/0.3 ML SQ SCH (07:59)
[2018-10-20] MEDS: MEGESTROL 400 MG/10 ML UDCUP PO SCH (08:00)
[2018-10-20] MEDS: DOCUSATE SODIUM 100 MG CAP PO SCH (08:00)
[2018-10-20] MEDS: ASPIRIN 81MG TAB.CHEW PO SCH (08:00)
[2018-10-20] MEDS: MAGNESIUM OXIDE 400 MG TABLET PO SCH (08:00)
[2018-10-20] MEDS: CARVEDILOL 3.125 MG TABLET PO SCH (08:01)
[2018-10-20] MEDS: FAMOTIDINE/PF 20 MG/2 ML VIAL IV SCH (08:01)
[2018-10-20] MEDS: ALPRAZOLAM 1 MG TAB PO SCH ×2 (08:01→14:26)
[2018-10-20] MEDS: LISINOPRIL 10 MG TABLET PO SCH (08:01)
[2018-10-20] MEDS: PANTOPRAZOLE SODIUM 40 MG TABLET.DR PO SCH (08:01)
[2018-10-20] MEDS: SYMBICORT 160-4.5 MCG INHALER IH SCH (08:01)
[2018-10-20] MEDS: VITAMIN B COMPLEX 1 CAPSULE PO SCH (08:06)
[2018-10-20] MEDS ORDERED: ACETAMINOPHEN-CODEINE 300/30MG TAB PO PRN (08:15)
[2018-10-20] MEDS: SERTRALINE HCL 50 MG TABLET PO SCH (08:15)
[2018-10-20] MEDS ORDERED: CHOLECALCIFEROL 5000 UNIT PO SCH (09:00)
--- NOTE | 2018-10-20 10:35 | NUR ---
SS REFERRAL Sw spoke to pt's son Mookie Linares. Son reports that pt lives with him and son's . Couple just bought a new home and pt will be living with them. Son states pt has 2 other kids, a son and daughter that live out of state and pt has been estranged from them both. Mookie is the only child that helps pt. Pt has a hx of opioid and Xanax abuse. Son concerned that medication pt is getting here is effecting pt's mental state. Son states pt has had episodes of confusion during this admission. Son denies any issues or conflict with pt. SW visited with pt who is alter and awake, sitting in chair at bedside. Pt states she is feeling mch better today than yesterday. Pt reports that medication has made "loopy". Pt confirmed information given by son. Pt states she sold her mobile home in Aug, and states she has almost gone thru all the money with the expenses for new house. Pt admits that she has a strained relationship with her 2 other children and trust issues as well. Pt denies being afraid of son Mookie and states that she does not remember saying that yesterday. Pt states if she were, she would not be there with son, "I have money and can be on my own, I chose not to be". Pt reports she feels safe returning home.
[2018-10-20 11:00] VITALS: BP 108/58
--- NOTE | 2018-10-20 15:36 | NUR ---
BED AVAILABLE/AUTH REC FOR [facility] DC ORDER PLACED PER OK FROM DR. MATEUS FRANKS. ADVISED OF BED AVAILABLITY - PRIMARY RN. SNF HOPING FOR TIMELY TRANSFER TO ENSURE SMOOTH TRANSITION
[2018-10-20 16:00] VITALS: BP 156/73
== END 2018-10-20 18:30 | DRG 481 ==
LOC: EDH 05:57 → OBSVTOIN 08:05 → EDHIP 08:05 → 4CH 14:02 → 3BH 10-14 16:15 → 4AH 10-16 08:36 → 2AH 10-16 11:40 → 4AH 10-17 16:30
PROVIDERS: ADMIT Internal Medicine; ATTEND Internal Medicine
PROC: 0QS736Z Reposition Left Upper Femur with Intramedullary Internal Fixation Device, Percutaneous Approach (ICD-10-PCS; principal; 2018-10-16 07:40)
DX: S72.145A Nondisplaced intertrochanteric fracture of left femur, initial encounter for closed fracture (principal); I74.5 Embolism and thrombosis of iliac artery; E44.0 Moderate protein-calorie malnutrition; M48.54XA Collapsed vertebra, not elsewhere classified, thoracic region, initial encounter for fracture; R64 Cachexia; Z68.1 Body mass index [BMI] 19.9 or less, adult; I73.9 Peripheral vascular disease, unspecified; I70.90 Unspecified atherosclerosis; F17.200 Nicotine dependence, unspecified, uncomplicated; E83.42 Hypomagnesemia; E87.6 Hypokalemia; D63.8 Anemia in other chronic diseases classified elsewhere; E78.5 Hyperlipidemia, unspecified; I11.0 Hypertensive heart disease with heart failure; I25.10 Atherosclerotic heart disease of native coronary artery without angina pectoris; I10 Essential (primary) hypertension; J44.9 Chronic obstructive pulmonary disease, unspecified; W01.0XXA Fall on same level from slipping, tripping and stumbling without subsequent striking against object, initial encounter; Y93.89 Activity, other specified; Y92.128 Other place in nursing home as the place of occurrence of the external cause; Y99.8 Other external cause status; Z95.5 Presence of coronary angioplasty implant and graft; Z90.710 Acquired absence of both cervix and uterus; Z83.3 Family history of diabetes mellitus; Z82.5 Family history of asthma and other chronic lower respiratory diseases; Z82.49 Family history of ischemic heart disease and other diseases of the circulatory system; Z82.3 Family history of stroke; Z82.0 Family history of epilepsy and other diseases of the nervous system
CPT/HCPCS: 36415; 71045; 73502; 76000; 80048; 80053; 81003; 82948; 83735; 84100; 84132; 85025; 85027; 85610; 85730; 86850; 86900; 86901; 86922; 93005; 93306; 94640; 94664; 97039; G0378; J0330; J0360; J1650; J1885; J2001; J2060; J2175; J2704; J2795; J3010; J3475; J3480; J3490; J7030

== ENCOUNTER 2019-05-28 19:31 | Inpatient (IN) | payer MEDICARE ==
[~2019-05-28] VITALS: Ht 154.9 cm; Wt 40.1 kg
[~2019-05-28 19:31] MED LIST changes: +ASPI-1197 PO; +DOCU-116 PO; +MAGN400O17 PO; +MEGE400O4 PO; +ONDA4TAB4 PO
[2019-05-28] MEDS ORDERED: KETOROLAC TROMETHAMINE 15MG/ML ONE (20:46)
[2019-05-28] MEDS ORDERED: DEXAMETHASONE SOD PHOSPHATE 10MG/ML 1ML VIAL ONE (20:46)
[2019-05-28] MEDS ORDERED: SODIUM CHLORIDE 0.9% 1000ML 1,000 ML IV ONE (20:47)
[2019-05-28 20:56] LABS: CARBON DIOXIDE 36 mmol/L (21-32); CHLORIDE 99 mmol/L (101-111); CREATININE 0.6 mg/dL (0.5-1.5); GLOMERULAR FILTR. RATE CALC 106 mL/min (>60); GLUCOSE,RANDOM 122 mg/dL (70-105); POTASSIUM 4.9 mmol/L (3.5-5.1); SODIUM SERUM 143 mmol/L (136-145); UREA NITROGEN, BLOOD 29 mg/dL (7-18)
[2019-05-28 21:08] LABS: ALANINE AMINOTRANSFERASE 12 U/L (12-78); ALCOHOL, BLOOD < 3 mg/dL (0-10); ASPARTATE AMINOTRANSFERASE 35 U/L (10-37); BILIRUBIN,TOTAL 0.9 mg/dL (0.2-1.0); THYROID STIMULATING HORMONE 0.71 uIU/mL (0.36-3.74); TOTAL PROTEIN, SERUM 8.4 g/dL (6.0-8.3)
[2019-05-28 21:11] LABS: ACETAMINOPHEN < 1 mcg/mL (10-30); SALICYLATE < 2.8 mg/dL (2.8-20.0)
[2019-05-28 21:22] LABS: BASOPHILS % (AUTO) 1.2 % (0.0-5.0); EOSINOPHILS % (AUTO) 0.3 % (0.0-8.0); LYMPHOCYTES % (AUTO) 24.9 % (21.0-51.0); MEAN CORPUSCULAR HEMOGLOBIN 21.1 pg (27.0-33.0); MEAN CORPUSCULAR HGB CONC 29.5 g/dL (32.0-36.0); MEAN CORPUSCULAR VOLUME 71.4 fL (79-99); MONOCYTES % (AUTO) 10.5 % (3.0-13.0); NEUTROPHILS % (AUTO) 63.1 % (40.0-77.0); NUCLEATED RED BLOOD CELLS 0.1 % (0.0-0.19); PLATELET COUNT (AUTO) 253 K/uL (130-400); RED BLOOD CELL COUNT(AUTO) 5.74 MIL/uL (4.00-5.50); RED CELL DISTRIBUTION WIDTH 19.7 % (11.0-15.5); WHITE BLOOD COUNT (AUTO) 8.2 K/uL (4.8-10.8)
[2019-05-28 21:23] LABS: APPEARANCE,URINE Clear (CLEAR); BILIRUBIN,URINE Negative (NEGATIVE); COLOR,URINE Dark Yellow (YELLOW); GLUCOSE, URINE (UA) Negative (NEGATIVE); KETONES,URINE Trace mg/dL (NEGATIVE); LEUKOCYTE ESTERASE ,URINE Negative (NEGATIVE); NITRATE,URINE Negative (NEGATIVE); OCCULT BLOOD,URINE Negative (NEGATIVE); PROTEIN,URINE POS 2+ mg/dL (NEGATIVE)
[2019-05-28 21:24] LABS: ABG BASE EXCESS 2.8 mmol/L (-2.0-3.0); ABG HCO3 33.8 mmol/L (21.0-28.0); ABG OXYGEN SATURATION 98.9 % (95.0-99.0); ABG PCO2 86 mmHg (32-45)
[2019-05-28 21:32] LABS: AMPHET/METH SCREEN,URINE NEGATIVE (NEGATIVE); BARBITURATE SCREEN, URINE NEGATIVE (NEGATIVE); BENZODIAZEPINES SCREEN,URINE POSITIVE (NEGATIVE); CANNABINOID SCREEN,URINE NEGATIVE (NEGATIVE); COCAINE SCREEN,URINE NEGATIVE (NEGATIVE); OPIATE SCREEN,URINE POSITIVE (NEGATIVE); PHENCYCLIDINE SCREEN,URINE NEGATIVE (NEGATIVE)
[2019-05-28 21:34] LABS: RBC,URINE 0-1 /HPF (0-1); WBC,URINE 0-1 /HPF (0-1)
[2019-05-28 21:35] LABS: BACTERIA,URINE Moderate /HPF (None Seen); SQUAMOUS EPITHELIAL CELL,UR Rare /HPF (0-2)
[2019-05-28] MEDS ORDERED: IPRATROPIUM/ALBUTEROL SULFATE 3 ML SOLUTION IH ONE ×2 (21:40→22:48)
[2019-05-28 22:41] LABS: ABG BASE EXCESS 1.6 mmol/L (-2.0-3.0); ABG HCO3 30.3 mmol/L (21.0-28.0); ABG OXYGEN SATURATION 84.9 % (95.0-99.0); ABG PCO2 66 mmHg (32-45)
[2019-05-28] MEDS ORDERED: ONDANSETRON HCL 4 MG/2 ML VIAL IV PRN (22:45)
[2019-05-28] MEDS ORDERED: MORPHINE SULFATE 2 MG/ML 1ML SYG IVP PRN (22:45)
[2019-05-28] MEDS ORDERED: ACETAMINOPHEN 325 MG TAB PO PRN ×2 (22:45)
[2019-05-28] MEDS: LEVOFLOXACIN 500 MG/D5W 100 ML 100 ML IV SCH (22:45)
[2019-05-28] MEDS ORDERED: LORAZEPAM 2 MG/ML 1 ML VIAL ONE (23:47)
[2019-05-28] MEDS ORDERED: METHYLPREDNISOLONE SOD SUCC 40MG/ML 1ML ONE (23:51)
[2019-05-28] MEDS ORDERED: LEVOFLOXACIN 500 MG/D5W 100 ML 100 ML ONE (23:52)
[2019-05-29] VITALS (14 sets, daily range): BP systolic 100–155; BP diastolic 35–69
[2019-05-29 01:24] LABS: INR 1.02 (0.85-1.15); PARTIAL THROMBOPLASTIN TIME 25.4 SEC (26.3-35.5); PROTHROMBIN TIME 10.7 SEC (9.6-11.6)
[2019-05-29] MEDS: IPRATROPIUM 0.5 MG/2.5 ML INH IH SCH ×3 (01:35→10:35)
[2019-05-29] MEDS ORDERED: SODIUM CHLORIDE 3% FOR INHALATION 4 ML/AMP VIAL.NEB IH ONE ×3 (01:40→22:54)
[2019-05-29] MEDS: METHYLPREDNISOLONE SOD SUCC 125MG/2ML VIAL IV SCH ×3 (02:00→17:20)
[2019-05-29 05:04] LABS: ABG BASE EXCESS 2.2 mmol/L (-2.0-3.0); ABG PCO2 60 mmHg (32-45)
[2019-05-29] MEDS ORDERED: KETOROLAC TROMETHAMINE 15MG/ML ONE (05:14)
[2019-05-29 05:31] LABS: BASOPHILS % (AUTO) 0.4 % (0.0-5.0); EOSINOPHILS % (AUTO) 0.1 % (0.0-8.0); HEMATOCRIT 39.9 % (36-48); MEAN CORPUSCULAR HEMOGLOBIN 21.6 pg (27.0-33.0); MEAN CORPUSCULAR HGB CONC 30.4 g/dL (32.0-36.0); MONOCYTES % (AUTO) 0.6 % (3.0-13.0); NEUTROPHILS % (AUTO) 84.9 % (40.0-77.0); NUCLEATED RED BLOOD CELLS 0.2 % (0.0-0.19); PLATELET COUNT (AUTO) 202 K/uL (130-400); RED BLOOD CELL COUNT(AUTO) 5.62 MIL/uL (4.00-5.50); WHITE BLOOD COUNT (AUTO) 3.1 K/uL (4.8-10.8)
[2019-05-29 05:41] LABS: CREATININE 0.5 mg/dL (0.5-1.5); MAGNESIUM 1.7 mg/dL (1.80-2.40); PHOSPHORUS 4.3 mg/dL (2.5-4.9); POTASSIUM 4.5 mmol/L (3.5-5.1)
--- NOTE | 2019-05-29 08:30 | NUR ---
ADMIT NOTE Received from ED. Awake, alert, and oriented x3. Does not appear in distress. On nasal cannula at 3lit/min tolerating well. Instructed on use of call light for any assistance, verbalized understanding. Plan of care discussed.
[2019-05-29] MEDS: ENOXAPARIN SODIUM 30 MG/0.3 ML SQ SCH (08:49)
[2019-05-29] MEDS: KETOROLAC TROMETHAMINE 15MG/ML IV PRN ×2 (08:50→17:32)
[2019-05-29] MEDS: FAMOTIDINE/PF 20 MG/2 ML VIAL IV SCH ×3 (08:50→20:59)
[2019-05-29] MEDS ORDERED: ACET1TAB12 PO (09:52)
[2019-05-29] MEDS ORDERED: ALPR1TAB2 PO (09:52)
[2019-05-29] MEDS ORDERED: ALPRAZOLAM 1 MG TAB ONE (10:40)
--- NOTE | 2019-05-29 12:15 | NUR ---
MD VISIT Dr. Amato in to see pt, update given. New orders received and will carry out.
--- NOTE | 2019-05-29 15:56 | NUR ---
D/C PLAN CM spoke to pt regarding d/c planning. Pt is ind. and lives alone. States son can assist in care if needed. Pt has wk and nebulizer at home. CM offered short term snf/rehab as possible d/c option. Pt declined. Plan to home. CM to f/u for possible home o2 needs. Addendum: 05/29/19 at 1610 by KAILEY AMARO CM Amended: Links added.
[2019-05-29] MEDS ORDERED: MAGNESIUM 2 GM IV ONE (16:00)
[2019-05-29] MEDS ORDERED: MAGNESIUM 2 GM IV PRN (17:00)
[2019-05-29] MEDS ORDERED: IPRATROPIUM/ALBUTEROL SULFATE 3 ML SOLUTION IH SCH (18:00)
[2019-05-29] MEDS: ACETAMINOPHEN-CODEINE 300/30MG TAB PO PRN (18:54)
[2019-05-29] MEDS: IPRATROPIUM/ALBUTEROL SULFATE 3 ML SOLUTION IH PRN (19:52)
[2019-05-29 20:50] LABS: ABG OXYGEN SATURATION 96.1 % (95.0-99.0); ABG PCO2 56 mmHg (32-45)
[2019-05-29] MEDS: ALPRAZOLAM 1 MG TAB PO SCH (20:54)
--- NOTE | 2019-05-29 21:58 | NUR ---
ABG RESULTS REPORTED TO Amina ALDANA NP NO NEW ORDERS- BIPAP PRN
[2019-05-29] MEDS: LEVOFLOXACIN 500 MG/D5W 100 ML 100 ML IV SCH (23:14)
[2019-05-30] VITALS (21 sets, daily range): BP systolic 96–151; BP diastolic 36–81
[2019-05-30] MEDS: METHYLPREDNISOLONE SOD SUCC 125MG/2ML VIAL IV SCH ×3 (01:56→17:24)
[2019-05-30 03:56] LABS: HEMATOCRIT 34.9 % (36-48); MEAN CORPUSCULAR HEMOGLOBIN 21.6 pg (27.0-33.0); MEAN CORPUSCULAR HGB CONC 30.9 g/dL (32.0-36.0); MEAN CORPUSCULAR VOLUME 69.9 fL (79-99); NUCLEATED RED BLOOD CELLS 0.3 % (0.0-0.19); PLATELET COUNT (AUTO) 222 K/uL (130-400); RED BLOOD CELL COUNT(AUTO) 4.99 MIL/uL (4.00-5.50); WHITE BLOOD COUNT (AUTO) 2.4 K/uL (4.8-10.8)
[2019-05-30 04:06] LABS: CREATININE 0.6 mg/dL (0.5-1.5); POTASSIUM 4.4 mmol/L (3.5-5.1)
[2019-05-30] MEDS: ACETAMINOPHEN-CODEINE 300/30MG TAB PO PRN ×2 (04:48→17:59)
[2019-05-30 06:01] LABS: BAND NEUTROPHILS % (MANUAL) 2 % (0-2); LYMPHOCYTES % (MANUAL) 16 % (22-44); MAN.DIFF COMMENT-IMPRESSION MANUAL DIFFERENTIAL; MONOCYTES % (MANUAL) 8 % (2-9); REACTIVE LYMPHOCYTES 4 % (0-0); SEGMENTED NEUTROPHILS % 70 % (40-70)
[2019-05-30 06:02] LABS: PLATELET MORPHOLOGY COMMENT ADEQUATE
[2019-05-30] MEDS: FAMOTIDINE/PF 20 MG/2 ML VIAL IV SCH ×2 (08:33→20:21)
[2019-05-30] MEDS: ALPRAZOLAM 1 MG TAB PO SCH ×3 (08:33→21:00)
[2019-05-30] MEDS: ENOXAPARIN SODIUM 30 MG/0.3 ML SQ SCH ×2 (08:34→08:39)
--- NOTE | 2019-05-30 15:36 | NUR ---
RD SCREEN - BMI 17.1 Pt admitted for Acute Respiratory Failure. Pt with Cachexia, BMI 17.1. Poor PO intake (25%). Pt reports no GI distress and seems pretty agreeable. RD recommend Ensure with meals, Pt agrees. Also recommend 30mls ProMod TID. Pt monitored labs: H/H 10.8/34.9, CO2 39, BUN 34, Glu 121, Ca 8.2, Alb 4.0. RD to continue to monitor. Please notify RD as additional nutrition concerns arise. Thank you. Addendum: 05/30/19 at [address] Amended: Links added.
--- NOTE | 2019-05-30 19:00 | NUR ---
TRANSFERRED TO ROOM 228 VIA BED, PCCU, REPORT GIVEN TO MAGO BINGHAM
[2019-05-30] MEDS: LEVOFLOXACIN 500 MG/D5W 100 ML 100 ML IV SCH (22:06)
[2019-05-31] MEDS: METHYLPREDNISOLONE SOD SUCC 125MG/2ML VIAL IV SCH (01:49)
[2019-05-31 04:00] VITALS: BP 136/56
[2019-05-31] MEDS: IPRATROPIUM/ALBUTEROL SULFATE 3 ML SOLUTION IH PRN ×2 (05:32→10:28)
[2019-05-31 07:00] VITALS: BP 152/74
[2019-05-31] MEDS: ALPRAZOLAM 1 MG TAB PO SCH ×2 (07:33→22:20)
[2019-05-31] MEDS: ENOXAPARIN SODIUM 30 MG/0.3 ML SQ SCH (07:34)
[2019-05-31 07:56] LABS: ABG HCO3 31.6 mmol/L (21.0-28.0); ABG OXYGEN SATURATION 88.8 % (95.0-99.0); ABG PCO2 44 mmHg (32-45)
[2019-05-31] MEDS: FAMOTIDINE 20MG TAB 20 MG TAB PO SCH ×2 (08:35→22:20)
[2019-05-31] MEDS ORDERED: METHYLPREDNISOLONE SOD SUCC 40MG/ML 1ML IVP SCH (10:00)
[2019-05-31] MEDS ORDERED: SODIUM CHLORIDE 3% FOR INHALATION 4 ML/AMP VIAL.NEB IH ONE (10:23)
[2019-05-31 11:00] VITALS: BP 132/59
[2019-05-31 15:00] VITALS: BP 151/66
[2019-05-31] MEDS: ACETAMINOPHEN-CODEINE 300/30MG TAB PO PRN (15:27)
[2019-05-31 19:00] VITALS: BP 130/60
[2019-05-31] MEDS: LEVOFLOXACIN 500 MG/D5W 100 ML 100 ML IV SCH (22:20)
[2019-05-31] MEDS: METHYLPREDNISOLONE SOD SUCC 40MG/ML 1ML IVP SCH (22:20)
[2019-05-31 23:00] VITALS: BP 156/76
[2019-06-01 04:00] VITALS: BP 160/70
[2019-06-01 04:52] LABS: MEAN CORPUSCULAR HEMOGLOBIN 21.1 pg (27.0-33.0); MEAN CORPUSCULAR HGB CONC 30.5 g/dL (32.0-36.0); MEAN CORPUSCULAR VOLUME 69.2 fL (79-99); NUCLEATED RED BLOOD CELLS 0.2 % (0.0-0.19); PLATELET COUNT (AUTO) 203 K/uL (130-400); RED BLOOD CELL COUNT(AUTO) 5.49 MIL/uL (4.00-5.50); RED CELL DISTRIBUTION WIDTH 20.6 % (11.0-15.5); WHITE BLOOD COUNT (AUTO) 3.3 K/uL (4.8-10.8)
[2019-06-01 05:04] LABS: ALBUMIN 2.8 g/dL (3.5-5.0); CARBON DIOXIDE 33 mmol/L (21-32); CHLORIDE 105 mmol/L (101-111); CREATININE 0.5 mg/dL (0.5-1.5); GLOMERULAR FILTR. RATE CALC 131 mL/min (>60); GLUCOSE,RANDOM 116 mg/dL (70-105); PHOSPHORUS 3.8 mg/dL (2.5-4.9); POTASSIUM 4.6 mmol/L (3.5-5.1); SODIUM SERUM 142 mmol/L (136-145); UREA NITROGEN, BLOOD 24 mg/dL (7-18)
[2019-06-01 07:52] VITALS: BP 160/65
[2019-06-01] MEDS: ALPRAZOLAM 1 MG TAB PO SCH ×2 (08:44→19:38)
[2019-06-01] MEDS: METHYLPREDNISOLONE SOD SUCC 40MG/ML 1ML IVP SCH ×2 (08:44→19:38)
[2019-06-01] MEDS: FAMOTIDINE 20MG TAB 20 MG TAB PO SCH (08:44)
[2019-06-01] MEDS: ENOXAPARIN SODIUM 30 MG/0.3 ML SQ SCH ×2 (08:45→08:55)
[2019-06-01 09:11] LABS: ABG BASE EXCESS 4.5 mmol/L (-2.0-3.0); ABG HCO3 29.2 mmol/L (21.0-28.0); ABG PCO2 44 mmHg (32-45)
[2019-06-01] MEDS: ACETAMINOPHEN-CODEINE 300/30MG TAB PO PRN (13:26)
--- NOTE | 2019-06-01 13:38 | NUR ---
refusing home O2 patient has been explained risks of not having O2 at home, and she is still refusing to have home O2 set up; patient was satting 85% during ambulation with RT this morning on room air; she is also refusing to have oxygen via nasal cannula at this time; JENNIFER Gutierrez and Dr Espinoza made aware
[2019-06-01 14:47] VITALS: BP 160/71
--- NOTE | 2019-06-01 15:09 | NUR ---
RD NOTIFICATION/ FOLLOW UP DX: ACUTE RESP. FAILURE. DIET: HEART HEALTHY, ENSURE TOD, PROMOD TID. PO INTAKE 75% AND HAS GOOD APPETITE PER PT. PT TOLERATING DIET WELL. PT STATED SHE IS NOT DRINKING SUPPLEMENTS AND WOULD RATHER DO WITHOUT THEM. OKAY TO D/C SUPPLEMENTS. SKIN INTACT, NO EDEMA NOTED. LBM: 06/01. THERE IS PHYSICAL EVIDENCE OF MUSCLE AND FAT LOSS. BMI IS 17; CLASSIFIED UNDERWEIGHT. NO NAUSEA, VOMITING OR DIARRHEA. NO DIFFICULTIES CHEWING OR SWALLOWING AT THIS TIME. RD RECOMMENDS CONTINUE CURRENT DIET. OK TO D/C SUPPLEMENTS. RD WILL CONTINUE TO MONITOR AND FOLLOW UP NEEDED. Addendum: 06/01/19 at [address] Amended: Links added.
--- NOTE | 2019-06-01 16:00 | NUR ---
patient agrees to home O2 set up patient's son at bedside; patient now agrees to have home O2 set up for her; Wendy Phoenix (CM), and Mercedes Norman, made aware
[2019-06-01] MEDS ORDERED: PANTOPRAZOLE SODIUM 40 MG TABLET.DR PO ONE (16:26)
[2019-06-01] MEDS ORDERED: PANTOPRAZOLE SODIUM 40 MG TABLET.DR PO SCH (16:30)
[2019-06-01] MEDS: IPRATROPIUM/ALBUTEROL SULFATE 3 ML SOLUTION IH PRN (19:15)
[2019-06-01] MEDS: LEVOFLOXACIN 500 MG/D5W 100 ML 100 ML IV SCH (19:38)
--- NOTE | 2019-06-01 19:47 | NUR ---
DC PLAN VISITED WITH PATIENT. PATIENT DECLINED O2 SPENT 30 MIN TALKING TO PATIENT SINCE SHE HAD ALSO DECLINED SNF. PATIENT VERY INSISTENT THAT SHE DOES NOT WANT. SAID HAS BEEN AT 85 % BEFORE AND DID NOT NEED IT WOULD JUST MAKE HER LUNGS WEAKER. PATIENT THEN CHANGED HER MIND ONCE SON THERE TO PICK HER UP. THERE WAS NO DISCHARGE ORDER AT THE TIME. CHARGE NURSE CALLED SAID THAT PATIENT HAD CHANGED MIND. AT THE TIME DR. CRUZ HAD ALREADY CAME BY AND LEFT. NEED 02 ORDERS SIGNED BY . FILLED FORM AND LEFT IN CHART LET NURSE KNOW TO PLEASE LET DR. CRUZ KNOW WHEN HE ROUNDS. Addendum: 06/01/19 at 3 by NAV JONES RN CM Amended: Links added.
[2019-06-01 20:30] VITALS: BP 148/64
[2019-06-02] VITALS: BP 150/60
[2019-06-02 04:56] VITALS: BP 158/78
[2019-06-02] MEDS: ACETAMINOPHEN-CODEINE 300/30MG TAB PO PRN (05:41)
[2019-06-02 08:00] VITALS: BP 160/53
[2019-06-02] MEDS: ENOXAPARIN SODIUM 30 MG/0.3 ML SQ SCH (09:00)
[2019-06-02] MEDS ORDERED: PANTOPRAZOLE SODIUM 40 MG TABLET.DR PO SCH (09:00)
[2019-06-02] MEDS: METHYLPREDNISOLONE SOD SUCC 40MG/ML 1ML IVP SCH (09:10)
[2019-06-02] MEDS: ALPRAZOLAM 1 MG TAB PO SCH (09:10)
[2019-06-02 11:00] VITALS: BP 135/65
[2019-06-02] MEDS ORDERED: PRED20TA3 PO (11:37)
[2019-06-02] MEDS ORDERED: LEVO500T2 PO (11:39)
[2019-06-02 16:00] VITALS: BP 165/71
--- NOTE | 2019-06-02 17:45 | NUR ---
Patient states that she will not wait for oxygen setup. Dr. Workman notified. supervisor malt house Silvana Zuluaga Rn notified. Patient advised about the risks and consequences involved in leaving the hospital at this time which could result in worsening of condition and/or . Patient advised that the oxygen setup was not complete due to insurance and that setup would be complete in am. Patient upset. Refused to stay over night. Patient discharged against medical advise.
--- NOTE | 2019-06-02 18:47 | NUR ---
DC PLAN GOT FORMS SIGNED BY DR. CRUZ. INFO SENT TO MULTIPLE DME COMPANIES: COMPANIES SAID NOT IN NETWORK [employer], [employer], [employer] PATIENTMelvin SMITH SAID NOT IN NETWORK BUT WOULD TRY TO DO A ONE TIME CONTRACT. CALLED NUMBER ON BACK OF CARD GOT TWO IN NETWORK [employer] THEY ARE NO LONGER OPEN PHONE NOT WORKING. HUMAIRA SUJEY CALLED NO ANSWER. WILL TRY AGAIN IN THE MORNING. PATIENT DID NOT WANT TO CONTINUE TO WAIT. LEFT AMA. Addendum: 06/02/19 at 1853 by NAV JONES RN CM Amended: Links added.
[2019-06-02] MEDS ORDERED: CARVEDILOL 3.125 MG TABLET PO SCH (21:00)
[2019-06-03] MEDS ORDERED: MEGESTROL 400 MG/10 ML UDCUP PO SCH (09:00)
[2019-06-03] MEDS ORDERED: PREDNISONE 20 MG TABLET PO SCH (09:00)
== END 2019-06-02 18:00 | disposition left against medical advice (07) | DRG 189 ==
LOC: EDH 19:31 → EDHIP 22:44 → 2CH 05-29 07:46 → 2DH 05-30 19:11
PROVIDERS: ADMIT Hospitalist; ATTEND Hospitalist
DX: J96.21 Acute and chronic respiratory failure with hypoxia (principal); J44.1 Chronic obstructive pulmonary disease with (acute) exacerbation; R64 Cachexia; J96.22 Acute and chronic respiratory failure with hypercapnia; F17.210 Nicotine dependence, cigarettes, uncomplicated; R53.81 Other malaise; I25.10 Atherosclerotic heart disease of native coronary artery without angina pectoris; G89.29 Other chronic pain; J40 Bronchitis, not specified as acute or chronic; I73.9 Peripheral vascular disease, unspecified; Z88.8 Allergy status to other drugs, medicaments and biological substances; Z95.5 Presence of coronary angioplasty implant and graft; Z90.710 Acquired absence of both cervix and uterus; Z82.5 Family history of asthma and other chronic lower respiratory diseases; Z82.49 Family history of ischemic heart disease and other diseases of the circulatory system; Z82.3 Family history of stroke; Z82.0 Family history of epilepsy and other diseases of the nervous system
CPT/HCPCS: 36415; 36600; 71045; 72100; 80048; 80053; 80305; 81001; 82040; 82803; 83735; 83880; 84100; 84145; 84443; 85025; 85027; 85378; 85610; 85730; 94640; 94660; 94664; 94760; G0378; G0480; G0481; J1100; J1650; J1885; J1956; J2060; J2920; J2930; J3475; J3490; J7030